=== PATIENT | male | born 1990 | race Caucasian/White ===

== ENCOUNTER 2021-12-17 18:33 | Emergency (ER) | payer BC ==
[2021-12-17] MEDS ORDERED: NAPROSYN500 MG PO (19:51)
== END 2021-12-17 20:20 | disposition home or self-care (01) ==
LOC: ER1 18:33
DX: S43.015A Anterior dislocation of left humerus, initial encounter (principal); F17.200 Nicotine dependence, unspecified, uncomplicated; W18.40XA Slipping, tripping and stumbling without falling, unspecified, initial encounter; Y99.0 Civilian activity done for income or pay; Y92.009 Unspecified place in unspecified non-institutional (private) residence as the place of occurrence of the external cause
CPT/HCPCS: 23650; 73030; 96374; 96375; 99283; J2270; J2405; J2704; J3010